=== PATIENT | female | born 1965 | race Caucasian/White ===

== ENCOUNTER 2021-04-21 10:23 | Day surgery (SDC) | payer OTHER, SELFPAY ==
[2021-04-18 10:51] LABS: BASOPHILS # (AUTO) 0.1 K/uL (0.0-0.2); BASOPHILS % (AUTO) 1.3 % (0.0-2.0); EOSINOPHILS # (AUTO) 0.2 K/uL (0.0-0.4); HEMOGLOBIN 14.4 g/dL (12.0-16.0); LYMPHOCYTES # (AUTO) 2.1 K/uL (1.0-5.5); LYMPHOCYTES % (AUTO) 38.3 % (20.5-51.5); MEAN CORPUSCULAR HEMOGLOBIN 29 pg (27-31); MEAN CORPUSCULAR HGB CONC 33 % (32-36); MEAN CORPUSCULAR VOLUME 87 fL (79.0-98.0); MONOCYTES # (AUTO) 0.4 K/uL (0.0-1.0); MONOCYTES % (AUTO) 7.3 % (1.7-9.3); NEUTROPHILS # (AUTO) 2.6 K/uL (1.8-7.7); NEUTROPHILS % (AUTO) 49.1 % (40.0-70.0); PLATELET COUNT (AUTO) 278 K/uL (130-430); RED BLOOD CELL COUNT(AUTO) 4.95 MIL/uL (4.2-6.2); RED CELL DISTRIBUTION WIDTH 13.4 % (9.0-15.0); WHITE BLOOD COUNT (AUTO) 5.4 K/uL (4.8-10.8)
[2021-04-18 11:05] LABS: CALCIUM 9.2 mg/dL (8.4-11.0); CREATININE 0.6 mg/dL (0.55-1.30); POTASSIUM 3.7 mmol/L (3.5-5.1)
[2021-04-18 11:13] LABS: BILIRUBIN,URINE NEGATIVE (NEGATIVE); BLOOD, URINE NEGATIVE (NEGATIVE); CLARITY/URINE CLEAR (CLEAR); COLOR,URINE YELLOW (YELLOW); GLUCOSE,URINE NEGATIVE (NEGATIVE); INR 0.9 (0.8-1.2); KETONES,URINE NEGATIVE (NEGATIVE); LEUKOCYTE ESTERASE ,URINE NEGATIVE (NEGATIVE); NITRITE, URINE NEGATIVE (NEGATIVE); PROTEIN URINE NEGATIVE (NEGATIVE); PROTHROMBIN TIME 9.8 SECS (9.5-12.5); UROBILINOGEN,URINE 0.2 (0.2-1.0)
[~2021-04-21] VITALS: Ht 157.5 cm; Wt 59.0 kg
[2021-04-21] MEDS ORDERED: BUPIVACAINE /EPINEPHRINE/PF 0.25% 30 ML VIAL INJ ONE (11:46)
[2021-04-21] MEDS ORDERED: LR 1,000 ML IV.SOLN IV ONE (11:46)
[2021-04-21] MEDS ORDERED: CEFAZOLIN 2 GM IVPB PREMIX 50 ML IV ONE (11:46)
[2021-04-21] MEDS ORDERED: ONDANSETRON HCL 4 MG/2 ML VIAL IVP ONE (11:46)
[2021-04-21] MEDS ORDERED: DEXAMETHASONE SOD PHOSPHATE 4 MG/ML VIAL IVP ONE (11:46)
[2021-04-21] MEDS ORDERED: ePHEDrine sulfate 50 MG/ML VIAL IVP ONE (11:46)
[2021-04-21] MEDS ORDERED: SEVOFLURANE 15 MIN GAS INH ONE (11:46)
[2021-04-21] MEDS ORDERED: ROCURONIUM BROMIDE 10 MG/ML (ZEMURON) IV ONE (11:46)
[2021-04-21] MEDS ORDERED: MIDAZOLAM HCL 5 MG/5 ML VIAL IVP ONE (11:46)
[2021-04-21] MEDS ORDERED: KETOROLAC TROMETHAMINE 30 MG VIAL IVP ONE (11:46)
[2021-04-21] MEDS ORDERED: METOCLOPRAMIDE HCL 10 MG/2 ML VIAL IVP ONE (11:46)
[2021-04-21] MEDS ORDERED: PHENYLEPHRINE HCL 10 MG/ML VIAL (NEOSYNEPHRINE) IV ONE (11:46)
[2021-04-21] MEDS ORDERED: fentaNYL CITRATE 250 MCG/5 ML AMP IV ONE (11:46)
[2021-04-21] MEDS ORDERED: NS IRRIG SOLN 1000 ML IR ONE (11:46)
[2021-04-21] MEDS ORDERED: GLYCOPYRROLATE 0.2 MG/ML VIAL IJ ONE (11:46)
[2021-04-21] MEDS ORDERED: PROPOFOL 200MG/ 20ML VIAL (DIPRIVAN) IV ONE (11:46)
[2021-04-21] MEDS ORDERED: METOCLOPRAMIDE HCL 10 MG/2 ML VIAL IVP PRN (12:30)
[2021-04-21] MEDS ORDERED: MEPERIDINE HCL/PF 25 MG/ML DISP.SYRIN IVP PRN (12:30)
[2021-04-21] MEDS ORDERED: ONDANSETRON HCL 4 MG/2 ML VIAL IVP PRN (12:30)
[2021-04-21] MEDS ORDERED: NALOXONE HCL 0.4 MG/ML AMP (NARCAN) IVP PRN (12:30)
[2021-04-21] MEDS ORDERED: KETOROLAC TROMETHAMINE 30 MG VIAL IVP PRN (12:30)
[2021-04-21] MEDS ORDERED: LR 1,000 ML IV SCH (12:30)
[2021-04-21] MEDS ORDERED: HYDROmorphone 1 MG/ML INJ. CARTRIDGE IVP PRN ×2 (12:30)
[2021-04-21] MEDS ORDERED: KETOROLAC TROMETHAMINE 30 MG VIAL ONE (13:21)
[2021-04-21 15:16] VITALS: BP_SYST 107
== END 2021-04-21 15:30 | disposition home or self-care (01) ==
LOC: SDS 10:23 → SMU 12:28 → SDS 15:30
PROVIDERS: ATTEND Orthopaedic Surgery
DX: S46.012A Strain of muscle(s) and tendon(s) of the rotator cuff of left shoulder, initial encounter (principal); M75.22 Bicipital tendinitis, left shoulder; M75.42 Impingement syndrome of left shoulder; M75.52 Bursitis of left shoulder; X58.XXXA Exposure to other specified factors, initial encounter; Y93.89 Activity, other specified; Y92.89 Other specified places as the place of occurrence of the external cause; Y99.8 Other external cause status; Z20.822 Contact with and (suspected) exposure to COVID-19; Z79.01 Long term (current) use of anticoagulants; Z79.899 Other long term (current) drug therapy
CPT/HCPCS: 23120; 23130; 23412; 23929; 36415; 71046; 80048; 81003; 85025; 85610; 85730; 88305; 88311; 93005; A4565; J0690; J1100; J1885; J2250; J2370; J2405; J2704; J2765; J3010; J3490 ×2; J7120; U0003; 88304

== ENCOUNTER 2022-03-29 05:35 | Day surgery (SDC) | payer OTHER ==
[2022-03-27 14:15] LABS: BILIRUBIN,URINE NEGATIVE (NEGATIVE); BLOOD, URINE NEGATIVE (NEGATIVE); CLARITY/URINE CLEAR (CLEAR); COLOR,URINE YELLOW (YELLOW); GLUCOSE,URINE NEGATIVE (NEGATIVE); KETONES,URINE NEGATIVE (NEGATIVE); LEUKOCYTE ESTERASE ,URINE TRACE (NEGATIVE); NITRITE, URINE NEGATIVE (NEGATIVE); PROTEIN URINE NEGATIVE (NEGATIVE); UROBILINOGEN,URINE 0.2 (0.2-1.0)
[2022-03-27 14:22] LABS: BASOPHILS # (AUTO) 0.1 K/uL (0.0-0.2); BASOPHILS % (AUTO) 0.8 % (0.0-2.0); EOSINOPHILS # (AUTO) 0.2 K/uL (0.0-0.4); EOSINOPHILS % (AUTO) 2.6 % (0.0-4.0); HEMATOCRIT 40.4 % (36-48); HEMOGLOBIN 13.7 g/dL (12.0-16.0); LYMPHOCYTES # (AUTO) 2.1 K/uL (1.0-5.5); LYMPHOCYTES % (AUTO) 28.2 % (20.5-51.5); MEAN CORPUSCULAR HEMOGLOBIN 29 pg (27-31); MEAN CORPUSCULAR HGB CONC 34 % (32-36); MEAN CORPUSCULAR VOLUME 86 fL (79.0-98.0); MONOCYTES # (AUTO) 0.6 K/uL (0.0-1.0); MONOCYTES % (AUTO) 7.2 % (1.7-9.3); NEUTROPHILS # (AUTO) 4.6 K/uL (1.8-7.7); NEUTROPHILS % (AUTO) 61.2 % (40.0-70.0); PLATELET COUNT (AUTO) 292 K/uL (130-430); RED CELL DISTRIBUTION WIDTH 13.9 % (9.0-15.0); WHITE BLOOD COUNT (AUTO) 7.6 K/uL (4.8-10.8)
[2022-03-27 14:25] LABS: BACTERIA,URINE None Seen /HPF (None Seen); RBC,URINE 0-3 /HPF (0-3); WBC,URINE 0-3 /HPF (0-3)
[2022-03-27 14:35] LABS: CREATININE 0.64 mg/dL (0.55-1.30)
[2022-03-27 14:41] LABS: INR 0.9 (0.8-1.2); PROTHROMBIN TIME 9.2 SECS (9.5-12.5)
[~2022-03-29] VITALS: Ht 157.5 cm; Wt 61.2 kg
[2022-03-29] MEDS ORDERED: CEFAZOLIN SOD 1 GM/ ISO 50 ML PREMIX IV ONE (07:00)
[2022-03-29] MEDS ORDERED: DESFLURANE 15 MIN GAS INH ONE (09:23)
[2022-03-29] MEDS ORDERED: NS 1000 ML IV.SOLN IV ONE (09:23)
[2022-03-29] MEDS ORDERED: ROCURONIUM BROMIDE 10 MG/ML (ZEMURON) ONE (09:23)
[2022-03-29] MEDS ORDERED: LIDOCAINE PF 2%, 40 MG/2 ML AMP INJ ONE (09:23)
[2022-03-29] MEDS ORDERED: fentaNYL CITRATE/PF 100 MCG/2 ML AMP ONE (09:23)
[2022-03-29] MEDS ORDERED: ONDANSETRON HCL 4 MG/2 ML VIAL ONE (09:23)
[2022-03-29] MEDS ORDERED: LR 1,000 ML IV.SOLN IV ONE (09:23)
[2022-03-29] MEDS ORDERED: MIDAZOLAM HCL 5 MG/5 ML VIAL ONE (09:23)
[2022-03-29] MEDS ORDERED: EPINEPHrine HCL 1 MG/ML VIAL ONE (09:23)
[2022-03-29] MEDS ORDERED: NS IRRIG SOLN 1000 ML IR ONE (09:23)
[2022-03-29] MEDS ORDERED: DEXAMETHASONE SOD PHOSPHATE 4 MG/ML VIAL ONE (09:23)
[2022-03-29] MEDS ORDERED: SUGAMMADEX SODIUM 200 MG/2 ML VIAL IV ONE (09:23)
[2022-03-29] MEDS ORDERED: KETOROLAC TROMETHAMINE 30 MG VIAL ONE (09:23)
[2022-03-29] MEDS ORDERED: PROPOFOL 200MG/ 20ML VIAL (DIPRIVAN) IV ONE (09:23)
[2022-03-29] MEDS ORDERED: ACETAMINOPHEN I.V. 1000 MG 100 ML IV ONE (10:00)
[2022-03-29] MEDS ORDERED: MEPERIDINE HCL/PF 25 MG/ML DISP.SYRIN IVP PRN (10:15)
[2022-03-29] MEDS ORDERED: HYDROmorphone 1 MG/ML INJ. CARTRIDGE IVP PRN ×2 (10:15)
[2022-03-29] MEDS ORDERED: METOCLOPRAMIDE HCL 10 MG/2 ML VIAL IVP PRN (10:15)
[2022-03-29] MEDS ORDERED: LR 1,000 ML IV SCH (10:15)
[2022-03-29 16:48] VITALS: BP_SYST 120
== END 2022-03-29 13:00 | disposition home or self-care (01) ==
LOC: SMU 05:35 → SDS 05:35 → SMU 10:11 → SDS 13:00
PROVIDERS: ATTEND Orthopaedic Surgery Sports Medicine
DX: M75.122 Complete rotator cuff tear or rupture of left shoulder, not specified as traumatic (principal); E78.5 Hyperlipidemia, unspecified; Z79.01 Long term (current) use of anticoagulants; Z79.899 Other long term (current) drug therapy; Z20.822 Contact with and (suspected) exposure to COVID-19
CPT/HCPCS: 80048; 81000; 85025; 85610; 85730; 36415 ×2; 93005; 71045; 29827; 64415; 29826; 76942; 87426; U0003; J3490; J0690; J1100; J0171; J1885; J2001; J2250; J2405; J2704; J3010; J7120; J7030; L3650; C1713; J0131